=== PATIENT | male | born 1975 | race Two or more races ===

== ENCOUNTER 2017-09-27 02:23 | Emergency (ER) | payer SELFPAY ==
[2017-09-27] MEDS: DIPHTH,PERTUSS(ACELL),TET TOX 0.5 ML DISP.SYRIN. VAX IM (03:15)
[2017-09-27 03:56] LABS: ADD MAN DIFF? NO
[2017-09-27 03:59] LABS: BASO % 0 % (0-3); EOS # 0.8 x10^3/uL (0.0-0.7); EOS % 6 % (0-3); HEMATOCRIT 43.8 % (39.0-53.0); HEMOGLOBIN 14.5 g/dL (13.0-17.5); LYMPH # 6.8 x10^3/uL (1.0-4.8); LYMPH % 52 % (24-48); MEAN CORPUSCULAR HEMOGLOBIN 28 pg (25-35); MEAN CORPUSCULAR HGB CONC 33 g/dL (31-37); MEAN CORPUSCULAR VOLUME 86 fL (79-100); MONO # 0.9 x10^3/uL (0.0-1.1); MONO % 7 % (0-9); NEUT # 4.6 x10^3uL (1.8-7.7); NEUT % 35 % (31-73); PLATELET COUNT 298 x10^3/uL (140-400); RED BLOOD COUNT 5.09 x10^6/uL (4.30-5.70); RED CELL DISTRIBUTION WIDTH 14.3 % (11.5-14.5); WHITE BLOOD COUNT 13.1 x10^3/uL (4.0-11.0)
[2017-09-27 04:07] LABS: ANION GAP 13 (6-14); BLOOD UREA NITROGEN 9 mg/dL (8-26); BUN/CREATININE RATIO 10 (6-20); CALCIUM 8.3 mg/dL (8.5-10.1); CARBON DIOXIDE 24 mmol/L (21-32); CHLORIDE 106 mmol/L (98-107); CREATININE 0.9 mg/dL (0.7-1.3); GFR 92.5; GLUCOSE 89 mg/dL (70-99); POTASSIUM 3.3 mmol/L (3.5-5.1); SODIUM 143 mmol/L (136-145)
[2017-09-27 04:08] LABS: INR 0.9 (0.8-1.1); PARTIAL THROMBOPLASTIN TIME 26 SEC (24-38); PROTHROMBIN TIME PATIENT 12.1 SEC (11.7-14.0)
[2017-09-27 04:13] LABS: ALBUMIN 3.6 g/dL (3.4-5.0); ALBUMIN/GLOBULIN RATIO 0.8 (1.0-1.7); ALK PHOS 126 U/L (46-116); ALT (SGPT) 64 U/L (16-63); AST (SGOT) 49 U/L (15-37); TOTAL BILIRUBIN 0.2 mg/dL (0.2-1.0); TOTAL PROTEIN 8.2 g/dL (6.4-8.2)
[2017-09-27 04:24] LABS: ETHANOL 371 mg/dL (0-10)
[2017-09-27] MEDS ORDERED: LIDOCAINE 2%/EPI 1:100,000 20 ML VIAL. IJ ×2 (04:30)
[2017-09-27] MEDS ORDERED: IOHEXOL 300 MG/ML 100ML VIAL. IV (05:00)
[2017-09-27] MEDS ORDERED: MAGNESIUM SULFATE 2GM 50 ML IV (05:00)
[2017-09-27] MEDS ORDERED: POTASSIUM CL 40MEQ IN 0.9%NACL 1,000 ML IV (05:00)
[2017-09-27] MEDS ORDERED: CONTRAST GIVEN MC (05:15)
== END 2017-09-27 05:00 | disposition short-term general hospital (02) ==
LOC: ER 02:23
DX: S02.2XXA Fracture of nasal bones, initial encounter for closed fracture (principal); S12.190A Other displaced fracture of second cervical vertebra, initial encounter for closed fracture; S01.01XA Laceration without foreign body of scalp, initial encounter; S40.812A Abrasion of left upper arm, initial encounter; S40.811A Abrasion of right upper arm, initial encounter; S80.812A Abrasion, left lower leg, initial encounter; S80.811A Abrasion, right lower leg, initial encounter; F10.10 Alcohol abuse, uncomplicated; Y90.8 Blood alcohol level of 240 mg/100 ml or more; W10.9XXA Fall (on) (from) unspecified stairs and steps, initial encounter; Y93.89 Activity, other specified; Y92.89 Other specified places as the place of occurrence of the external cause; Y99.8 Other external cause status
CPT/HCPCS: 13121; 13122; 36415; 70450; 70486; 72125; 80053; 85025; 85610; 85730; 86850; 86900; 86901; 90471; 90715; 99291-25; G0480